=== PATIENT | male | born 1985 | race Caucasian/White ===

== ENCOUNTER 2017-02-09 09:34 | Emergency (ER) | payer BC, MEDICAID ==
[~2017-02-09] VITALS: Ht 177.8 cm; Wt 71.0 kg
[2017-02-09 09:38] VITALS: Ht 177.8 cm; Wt 71.0 kg
--- NOTE | 2017-02-09 10:31 | ERD ---
ER Documentation Chief Complaint Date/Time DATE: 02/09/17 TIME: 10:27 Chief Complaint lt hand swelling HPI 31 year old male with a history of IVDA with heroin presents with left hand swelling that occurred just an hour ago after injecting. Patient injected in the antecubital region, and hand is swollen, he is wearing her index finger playing and he is not able to remove this. He has no pain. Patient denies history of fever. He denies any history of trauma related. ROS All systems reviewed and are negative except as per history of present illness. Medications Home Meds Active Scripts Aspirin* (Aspirin* Chew) 81 Mg Tab.chew, 81 MG PO DAILY, #30 TAB.CHEW Prov:JOSE FRASER PA-C 02/09/17 Ibuprofen* (Motrin*) 600 Mg Tab, 600 MG PO Q6, #30 TAB Prov:JOSE FRASER PA-C 02/09/17 PMhx/Soc Medical and Surgical Hx: pt denies Medical Hx, pt denies Surgical Hx Hx Substance Use: Yes (HEROIN) Physical Exam Vitals Vital Signs Date Time Temp Pulse Resp B/P Pulse Ox O2 Delivery O2 Flow Rate FiO2 02/09/17 09:38 98.1 101 18 139/76 98 Physical Exam General: Well-developed, well-nourished. The patient appears in no acute distress. HEENT: Head is normocephalic, atraumatic. No scleral icterus. Neck: Supple. Nontender. Lungs: Clear to auscultation. Normal air movement. Heart: Regular rate and rhythm. S1 and S2 are normal. No murmurs, gallops, or rubs. Abdomen: Nondistended. Extremities: Multiple areas of bruising on the left upper extremity including the antecubital as well as on the forearm. There is swelling to left hand, patient is wearing a ring on the index finger. Patient has radial pulses bilaterally. No pain with palpation. Compartments are soft Neurologic: Alert and oriented 3. No focal deficits. Normal speech and gait. Skin: Normal turgor. No rash or lesions. Result Diagram: 02/09/17 1035 02/09/17 1035 Results 24 hrs Laboratory Tests Test 02/09/17 10:35 02/09/17 11:40 White Blood Count 8.210^3/ul Red Blood Count 5.4710^6/ul Hemoglobin 16.3g/dl Hematocrit 47.7% Mean Corpuscular Volume 87.2fl Mean Corpuscular Hemoglobin 29.8pg Mean Corpuscular Hemoglobin Concent 34.2g/dl Red Cell Distribution Width 12.6% Platelet Count 52587^3/UL Mean Platelet Volume 10.3fl Neutrophils % 65.2% Lymphocytes % 23.4% Monocytes % 8.7% Eosinophils % 2.3% Basophils % 0.2% Nucleated Red Blood Cells % 0.0/100WBC Neutrophils # (Manual) 510^3/ul Lymphocytes # 1.910^3/ul Monocytes # 0.710^3/ul Eosinophils # 0.210^3/ul Basophils # 0.010^3/ul Nucleated Red Blood Cells # 0.010^3/ul Sodium Level 143mmol/L Potassium Level 4.3mmol/L Chloride Level 95mmol/L Carbon Dioxide Level 31mmol/L Anion Gap 21 Blood Urea Nitrogen 13mg/dl Creatinine 0.90mg/dl Glucose Level 109mg/dl Calcium Level 10.0mg/dl Prothrombin Time 12.6Sec Prothrombin Time Ratio 1.0 INR International Normalized Ratio 0.94 Activated Partial Thromboplast Time 32.9Sec DIAGNOSTIC IMAGING REPORT Patient: SCOTTIE WESLEY : 1985 Age: 31 Sex: M MR #: [id number] [facility] #: [id number] DOS: 02/09/17 1015 Ordering MD: JOSE FRASER PA-C Location: [facility] Room/Bed: PROCEDURE: US upper extremity arterial. CLINICAL INDICATION: Pain, swelling TECHNIQUE: Multiple sonographic images of the bilateral upper extremity arteries was obtained utilizing grayscale, color-flow, compressive sonography and doppler imaging. The images were reviewed on a PACS workstation. COMPARISON: None. FINDINGS: Velocities and waveforms were obtained as described below. Right arm Right subclavian artery: 71 cm/s; triphasic waveforms Right axillary artery: 121 cm/s; triphasic waveforms Right brachial artery: 55 cm/s; triphasic waveforms Right radial artery: 8 cm/s; biphasic waveforms Right ulnar artery: 45 cm/s; triphasic waveforms Left arm Left subclavian artery: 97 cm/s; triphasic waveforms Left axillary artery: 82 cm/s; triphasic waveforms Left brachial artery: 64 cm/s; triphasic waveforms Left radial artery: 46 cm/s; triphasic waveforms Left ulnar artery: 65 cm/s; triphasic waveforms IMPRESSION: No focal area of high degree stenosis. Decreased velocity in the right radial artery. RPTAT: AA .Juan Bojorquez MD, Date Time Electronically viewed and signed by .Juan Bojorquez MD, MD on 02/09/2017 12: 03 .S/ DIAGNOSTIC IMAGING REPORT Patient: SCOTTIE WESLEY : 1985 Age: 31 Sex: M MR #: [id number] DOS: 02/09/17 1015 Ordering MD: JOSE FRASER PA-C Location: [facility] Room/Bed: PROCEDURE: Ultrasound of the left upper extremity venous system. CLINICAL INDICATION: Left arm swelling following intravenous drug use. TECHNIQUE: Perez scale with and without compression, color doppler, spectral doppler of the venous system of the left upper extremity was performed. Venous augmentation maneuvers were utilized. COMPARISON: No prior studies are available for comparison. FINDINGS: Left: Jugular vein: Patent and compressible. Subclavian vein: Patent and compressible. Axillary vein: Patent and compressible. Brachial vein: Patent and compressible. Basilic vein: Patent and compressible. Cephalic vein: Thrombus present in the left cephalic vein in the lower forearm. Soft tissues: Normal IMPRESSION: 1. No evidence of left upper extremity deep vein thrombosis. 2. Evidence of superficial thrombophlebitis involving the left cephalic vein. RPTAT: AACDanny Physician Guillermo Date Time Electronically viewed and signed by Physician Guillermo on 02/09/2017 11: 13 JH/ Procedures/MDM ER course: Ring was removed immediately from the index finger. Labs and urine were obtained. We advised patient to elevate the arm, I reassessed the patient, the swelling has gone down, he is neurovascularly intact. Medical decision makin-year-old male comes in with left upper extremity swelling after IV drug abuse just prior to arrival approximately an hour, there is evidence of a superficial thrombophlebitis of the left cephalic vein. Patient does not have any fever, streaking, compartment syndrome, normal white blood cell count noted. Arterial ultrasound shows decreased radial flow, however he has good capillary refill, the swelling has gone down, and he is neurovascularly intact. There is good collateral blood flow and there are no signs of any limb threatening process for this patient. He states that he would like to get help, I have given him a list of clinics, and he may follow- up with a pain specialist. The case was reviewed and discussed with Dr. Solorio who agrees with the plan of care including labs, treatment, and advanced imaging as appropriate. Departure Diagnosis: Primary Impression: Thrombophlebitis Additional Impression: IV drug abuse Condition: JOSE Lerma PA-C Feb 09, 2017 10:26
[2017-02-09 10:43] LABS: BASOPHILS % 0.2 % (0.0-2.0); EOSINOPHILS # 0.2 10^3/ul (0.0-0.5); EOSINOPHILS % 2.3 % (0.0-7.0); HEMATOCRIT 47.7 % (42.0-52.0); HEMOGLOBIN 16.3 g/dl (14.0-18.0); LYMPHOCYTES # 1.9 10^3/ul (0.8-2.9); LYMPHOCYTES % 23.4 % (15.0-51.0); MEAN CORPUSCULAR HEMOGLOBIN 29.8 pg (29.0-33.0); MEAN CORPUSCULAR HGB CONC 34.2 g/dl (32.0-37.0); MEAN CORPUSCULAR VOLUME 87.2 fl (82.0-101.0); MEAN PLATELET VOLUME 10.3 fl (7.4-10.4); MONOCYTE # 0.7 10^3/ul (0.3-0.9); MONOCYTES % 8.7 % (0.0-11.0); NEUTROPHILS % 65.2 % (39.0-77.0); PLATELET COUNT 251 10^3/UL (140-415); RED BLOOD COUNT 5.47 10^6/ul (4.70-6.10); RED CELL DISTRIBUTION WIDTH 12.6 % (11.5-14.5); WHITE BLOOD COUNT 8.2 10^3/ul (4.8-10.8)
[2017-02-09 11:04] LABS: CREATININE 0.9 mg/dl (0.61-1.24); POTASSIUM 4.3 mmol/L (3.5-5.1)
--- NOTE | 2017-02-09 11:13 | RADRPT ---
PROCEDURE: Ultrasound of the left upper extremity venous system. CLINICAL INDICATION: Left arm swelling following intravenous drug use. TECHNIQUE: Perez scale with and without compression, color doppler, spectral doppler of the venous system of the left upper extremity was performed. Venous augmentation maneuvers were utilized. COMPARISON: No prior studies are available for comparison. FINDINGS: Left: Jugular vein: Patent and compressible. Subclavian vein: Patent and compressible. Axillary vein: Patent and compressible. Brachial vein: Patent and compressible. Basilic vein: Patent and compressible. Cephalic vein: Thrombus present in the left cephalic vein in the lower forearm. Soft tissues:Normal IMPRESSION: 1. No evidence of left upper extremity deep vein thrombosis. 2. Evidence of superficial thrombophlebitis involving the left cephalic vein. RPTAT: AACC Physician Guillermo Date Time Electronically viewed and signed by Physician Guillermo on 02/09/2017 11:13 /
--- NOTE | 2017-02-09 12:04 | RADRPT ---
PROCEDURE: US upper extremity arterial. CLINICAL INDICATION: Pain, swelling TECHNIQUE: Multiple sonographic images of the bilateral upper extremity arteries was obtained util izing grayscale, color-flow, compressive sonography and doppler imaging. The images were reviewed o n a PACS workstation. COMPARISON: None. FINDINGS: Velocities and waveforms were obtained as described below. Right arm Right subclavian artery: 71 cm/s; triphasic waveforms Right axillary artery: 121 cm/s; triphasic waveforms Right brachial artery: 55 cm/s; triphasic waveforms Right radial artery: 8 cm/s; biphasic waveforms Right ulnar artery: 45 cm/s; triphasic waveforms Left arm Left subclavian artery: 97 cm/s; triphasic waveforms Left axillary artery: 82 cm/s; triphasic waveforms Left brachial artery: 64 cm/s; triphasic waveforms Left radial artery: 46 cm/s; triphasic waveforms Left ulnar artery: 65 cm/s; triphasic waveforms IMPRESSION: No focal area of high degree stenosis. Decreased velocity in the right radial artery. RPTAT: AA .Juan Bojorquez MD, MD Date Time Electronically viewed and signed by .Juan Bojorquez MD, on 02/09/2017 12:03 .S/
[2017-02-09 12:27] LABS: INR 0.94; PROTIME 12.6 Sec (12.2-14.2)
[2017-02-09 12:28] LABS: PARTIAL THROMBOPLASTIN TIME 32.9 Sec (25.0-35.0)
[2017-02-09] MEDS ORDERED: IBUP-1542 PO (12:36)
[2017-02-09] MEDS ORDERED: ASPI81TA3 PO (12:36)
[2017-02-09 12:41] VITALS: BP 109/79; PULSE 80; RESP 16; TEMP 98.1
== END 2017-02-09 12:42 | disposition home or self-care (01) ==
LOC: FTE 09:34
DX: I80.8 Phlebitis and thrombophlebitis of other sites (principal); F11.10 Opioid abuse, uncomplicated; Z79.82 Long term (current) use of aspirin
CPT/HCPCS: 36415; 80048; 85025; 85610; 85730; 93923; 93971; Z7502; 99283